=== PATIENT | male | born 1950 | race Caucasian/White ===

== ENCOUNTER → 2018-09-15 | Outpatient (CLI) | payer MEDICARE ==
[~2018-09-15] MED LIST: AMLO10TA4 PO; AMLO10TA6 PO; ASPI325T17 PO; ASPI325T80 PO; ATOR40TA78 PO; BETA15CR4 TP; CARV-39 PO; CHOL10003 PO; CYAN1TAB29 PO; DABI150C PO; GABA300C10 PO; GEMF600T PO; GEMF600T4 PO; GLIM4TAB2 PO; HYDR-3245 PO; INDO50CA5 PO; LINA5TAB PO; LISI40TA PO; LORA10TA3 PO; MELO15TA24 PO; MELO7.5T31 PO; METF500T17 PO; NIAC500T10 PO; NIAC500T9 PO; PREG75CA PO; REGADENOSON 0.4 MG/5 ML SYRINGE ONE; SENN1TAB8 PO; SOTA120T26 PO; SULF1TAB24 PO; TRAM50TA2 PO; VIT1TABL32 PO
== END | disposition home or self-care (01) ==
LOC: CFH 11:52
PROVIDERS: ATTEND Internal Medicine Cardiovascular Disease
DX: I25.2 Old myocardial infarction (principal)
CPT/HCPCS: 78452; 93017; A9502; J2785